=== PATIENT | male | born 1970 | race Caucasian/White ===

== ENCOUNTER 2018-06-06 16:04 | Inpatient (IN) | payer OTHER ==
[~2018-06-06] VITALS: Ht 170.2 cm; Wt 104.6 kg
[2018-06-06] MEDS ORDERED: MIRT30 PO (16:15)
[2018-06-06] MEDS ORDERED: OLAN2.5T3 PO (16:15)
[2018-06-06] MEDS ORDERED: SODIUM CHLORIDE 0.9% 1,000 ML IV ONE ×2 (16:45→18:15)
[2018-06-06] MEDS ORDERED: ONDANSETRON HCL 4 MG/2 ML VIAL IVP ONE (16:45)
[2018-06-06 16:55] LABS: BASOPHILS % (AUTO) 0.8 % (0.0-2.0); EOSINOPHILS % (AUTO) 0.3 % (1.0-6.0); HEMATOCRIT 32.2 % (41-53); HEMOGLOBIN 11.1 g/dL (13.5-17.5); LYMPHOCYTES # (AUTO) 0.9 K/uL (1.0-4.8); LYMPHOCYTES % (AUTO) 6.5 % (22.0-44.0); MEAN CORPUSCULAR HEMOGLOBIN 37.2 pg (26.0-34.0); MEAN CORPUSCULAR HGB CONC 34.6 G/dL (31.0-37.0); MEAN CORPUSCULAR VOLUME 108 fL (80-100); MONOCYTES # (AUTO) 1.2 K/uL (0.1-1.0); MONOCYTES % (AUTO) 8.7 % (2.0-9.0); NEUTROPHILS # (AUTO) 11.6 K/uL (1.8-7.7); NEUTROPHILS % (AUTO) 83.7 % (40.0-70.0); PLATELET COUNT (AUTO) 280 K/uL (150-450); RED BLOOD CELL COUNT(AUTO) 2.99 MIL/uL (4.50-5.90); RED CELL DISTRIBUTION WIDTH 15.1 % (11.5-14.5)
[2018-06-06 17:06] LABS: ANION GAP 13 mmol/L (8-16); CARBON DIOXIDE 23 mmol/L (22-29); CHLORIDE 99 mmol/L (98-107); CREATININE 0.85 mg/dL (0.60-1.30); GLOMERULAR FILTR. RATE CALC > 60 mL/min (>60); GLUCOSE,RANDOM 111 mg/dL (70-110); POTASSIUM 3.2 mmol/L (3.5-5.1); SODIUM SERUM 135 mmol/L (136-145); UREA NITROGEN, BLOOD 9 mg/dL (7-18)
[2018-06-06 17:07] LABS: INR 1.2 (0.9-1.1); PROTHROMBIN TIME 12.6 SEC (9.4-11.6)
[2018-06-06 17:11] LABS: ALANINE AMINOTRANSFERASE 87 U/L (12-78); ALBUMIN 2.2 g/dL (3.4-5.0); ALKALINE PHOSPHATASE 198 U/L (46-116); ASPARTATE AMINOTRANSFERASE 285 U/L (15-37); BILIRUBIN,TOTAL 7.8 mg/dL (0.1-1.0); LIPASE 346 U/L (73-393); TOTAL PROTEIN, SERUM 9.1 g/dL (6.4-8.2)
[2018-06-06] MEDS ORDERED: DIAZEPAM 5 MG/ML 2 ML SYRINGE IVP PRN (18:15)
[2018-06-06] MEDS ORDERED: ONDANSETRON HCL 4 MG/2 ML VIAL IVP PRN (18:15)
[2018-06-06] MEDS ORDERED: POTASSIUM CHLORIDE 10% 40 MEQ/30 ML LIQUID UDCUP PO ONE (21:00)
[2018-06-06 21:15] VITALS: BP 129/83
[2018-06-06] MEDS ORDERED: ACETAMINOPHEN 325 MG TABLET PO PRN (22:15)
[2018-06-06] MEDS ORDERED: MIRTAZAPINE 30 MG TABLET PO SCH (22:15)
[2018-06-06 23:01] LABS: LACTIC ACID 2.2 mmol/L (0.4-2.0)
[2018-06-06 23:08] VITALS: BP 153/83
[2018-06-06] MEDS: OLANZapine 7.5 MG TABLET PO SCH (23:10)
[2018-06-07 01:41] LABS: APPEARANCE,URINE CLOUDY (CLEAR); GLUCOSE, URINE (UA) NEGATIVE (NEGATIVE); KETONES,URINE 15 mg/dL (NEGATIVE); LEUKOCYTE ESTERASE ,URINE MODERATE (NEGATIVE); NITRATE,URINE POSITIVE (NEGATIVE); OCCULT BLOOD,URINE NEGATIVE (NEGATIVE); PH,URINE 5.5 (5.0-8.0); PROTEIN,URINE POS 1+ (NEGATIVE)
[2018-06-07 01:42] LABS: BILIRUBIN,URINE PRELIM. POSITIVE (NEGATIVE)
[2018-06-07 01:49] LABS: BACTERIA,URINE Moderate /HPF (None Seen)
[2018-06-07 01:50] LABS: MUCUS,URINE Moderate LPF (None Seen); RBC,URINE None Seen /HPF (0-2); SQUAMOUS EPITHELIAL CELL,UR Few /LPF (None Seen)
[2018-06-07 05:07] VITALS: BP 130/80
[2018-06-07 05:45] LABS: BASOPHILS % (AUTO) 0.8 % (0.0-2.0); EOSINOPHILS % (AUTO) 0.6 % (1.0-6.0); HEMATOCRIT 29.7 % (41-53); HEMOGLOBIN 10.1 g/dL (13.5-17.5); LYMPHOCYTES # (AUTO) 1.4 K/uL (1.0-4.8); LYMPHOCYTES % (AUTO) 10.7 % (22.0-44.0); MEAN CORPUSCULAR HEMOGLOBIN 37.3 pg (26.0-34.0); MEAN CORPUSCULAR HGB CONC 34.1 G/dL (31.0-37.0); MEAN CORPUSCULAR VOLUME 109 fL (80-100); MONOCYTES # (AUTO) 1.4 K/uL (0.1-1.0); MONOCYTES % (AUTO) 10.6 % (2.0-9.0); NEUTROPHILS # (AUTO) 10.1 K/uL (1.8-7.7); NEUTROPHILS % (AUTO) 77.3 % (40.0-70.0); PLATELET COUNT (AUTO) 241 K/uL (150-450); RED BLOOD CELL COUNT(AUTO) 2.72 MIL/uL (4.50-5.90); RED CELL DISTRIBUTION WIDTH 15.5 % (11.5-14.5)
[2018-06-07 06:33] LABS: ALANINE AMINOTRANSFERASE 81 U/L (12-78); ALKALINE PHOSPHATASE 185 U/L (46-116); ANION GAP 11 mmol/L (8-16); ASPARTATE AMINOTRANSFERASE 272 U/L (15-37); BILIRUBIN,TOTAL 7.2 mg/dL (0.1-1.0); CALCIUM, TOTAL 8.5 mg/dL (8.8-10.5); CARBON DIOXIDE 24 mmol/L (22-29); CHLORIDE 102 mmol/L (98-107); CREATININE 0.97 mg/dL (0.60-1.30); GLOMERULAR FILTR. RATE CALC > 60 mL/min (>60); GLUCOSE,RANDOM 92 mg/dL (70-110); POTASSIUM 3.8 mmol/L (3.5-5.1); SODIUM SERUM 137 mmol/L (136-145); TOTAL PROTEIN, SERUM 7.9 g/dL (6.4-8.2); UREA NITROGEN, BLOOD 10 mg/dL (7-18)
[2018-06-07 07:07] VITALS: BP 136/82
[2018-06-07 15:06] VITALS: BP 154/77
[2018-06-07] MEDS ORDERED: PIPERACILLIN SODIUM/TAZOBACTAM 2.25 GM in DEXTROSE 5%-WATER 50 ML IV SCH (16:00)
[2018-06-07] MEDS: PIPERACILLIN/TAZO 3.375 GM/D5W 50 ML IV SCH ×2 (16:31→21:05)
[2018-06-07] MEDS ORDERED: MORPHINE SULFATE 2 MG/ML SYRINGE IVP PRN (17:30)
[2018-06-07] MEDS ORDERED: BISACODYL 10 MG RECTAL RECTAL SUPPOSITORY PR PRN (17:30)
[2018-06-07] MEDS ORDERED: LORazepam 2 MG/ML VIAL IVP PRN (17:30)
[2018-06-07] MEDS ORDERED: HYDROCODONE/ACETAMINOPHEN 5-325 MG TABLET PO PRN (17:30)
[2018-06-07] MEDS ORDERED: ALBUTEROL SULFATE 2.5 MG/0.5 ML NEB SOLUTION NEB PRN (17:30)
[2018-06-07] MEDS ORDERED: ONDANSETRON HCL 4 MG/2 ML VIAL IVP PRN (17:30)
[2018-06-07] MEDS ORDERED: IPRATROPIUM BROMIDE 0.5 MG/2.5 ML NEB SOLUTION NEB PRN (17:30)
[2018-06-07] MEDS ORDERED: MAGNESIUM HYDROXIDE SUSPENSION 30 ML UDCUP PO PRN (17:30)
[2018-06-07] MEDS: ChlordiazePOXIDE HCL 25 MG CAPSULE PO SCH (17:53)
[2018-06-07] MEDS: MIRTAZAPINE 30 MG TABLET PO SCH (17:53)
[2018-06-07 19:29] VITALS: BP 140/88
[2018-06-07] MEDS: DOCUSATE SODIUM 100 MG CAPSULE PO SCH (21:00)
[2018-06-07] MEDS: OLANZapine 7.5 MG TABLET PO SCH (21:04)
[2018-06-07 23:20] VITALS: BP 132/79
[2018-06-08] MEDS: HEPARIN SODIUM,PORCINE 5,000 UNITS/ML VIAL SQ SCH ×3 (00:08→16:52)
[2018-06-08] MEDS: ChlordiazePOXIDE HCL 25 MG CAPSULE PO SCH ×3 (00:08→16:52)
[2018-06-08] MEDS: ZOLPIDEM TARTRATE 5 MG TABLET PO PRN (00:09)
[2018-06-08] MEDS: PIPERACILLIN/TAZO 3.375 GM/D5W 50 ML IV SCH ×4 (03:19→21:46)
[2018-06-08 04:28] VITALS: BP 131/85
[2018-06-08 07:51] VITALS: BP 127/77
[2018-06-08] MEDS: FOLIC ACID 1 MG TABLET PO SCH (08:27)
[2018-06-08] MEDS: MIRTAZAPINE 30 MG TABLET PO SCH (08:27)
[2018-06-08] MEDS: MULTIVITAMINS, THERAPEUTIC TABLET PO SCH (08:27)
[2018-06-08] MEDS: DOCUSATE SODIUM 100 MG CAPSULE PO SCH ×2 (08:28→21:00)
[2018-06-08] MEDS: PANTOPRAZOLE SODIUM 40 MG/VIAL IVP SCH (08:28)
[2018-06-08] MEDS: THIAMINE HCL 100 MG TABLET PO SCH (08:28)
[2018-06-08] MEDS ORDERED: MEBROFENIN TC99M/MCL ISOTOPE 1 EA INJ INJ ONE (09:15)
[2018-06-08 11:37] VITALS: BP 112/62
[2018-06-08 14:09] LABS: EOSINOPHILS % (AUTO) 0.9 % (1.0-6.0); HEMATOCRIT 30.2 % (41-53); HEMOGLOBIN 10.3 g/dL (13.5-17.5); LYMPHOCYTES # (AUTO) 1.4 K/uL (1.0-4.8); LYMPHOCYTES % (AUTO) 11.4 % (22.0-44.0); MEAN CORPUSCULAR HGB CONC 34.3 G/dL (31.0-37.0); MEAN CORPUSCULAR VOLUME 108 fL (80-100); MONOCYTES # (AUTO) 0.9 K/uL (0.1-1.0); MONOCYTES % (AUTO) 7.4 % (2.0-9.0); NEUTROPHILS # (AUTO) 9.8 K/uL (1.8-7.7); NEUTROPHILS % (AUTO) 79.3 % (40.0-70.0); PLATELET COUNT (AUTO) 247 K/uL (150-450); RED BLOOD CELL COUNT(AUTO) 2.79 MIL/uL (4.50-5.90); RED CELL DISTRIBUTION WIDTH 15.7 % (11.5-14.5)
[2018-06-08 14:28] LABS: ANION GAP 11 mmol/L (8-16); CARBON DIOXIDE 24 mmol/L (22-29); CHLORIDE 98 mmol/L (98-107); CREATININE 0.97 mg/dL (0.60-1.30); GLOMERULAR FILTR. RATE CALC > 60 mL/min (>60); GLUCOSE,RANDOM 92 mg/dL (70-110); POTASSIUM 3.8 mmol/L (3.5-5.1); SODIUM SERUM 133 mmol/L (136-145); UREA NITROGEN, BLOOD 7 mg/dL (7-18)
[2018-06-08 14:34] LABS: ALANINE AMINOTRANSFERASE 75 U/L (12-78); ALBUMIN 2.1 g/dL (3.4-5.0); ALKALINE PHOSPHATASE 178 U/L (46-116); ASPARTATE AMINOTRANSFERASE 244 U/L (15-37); BILIRUBIN,TOTAL 7.8 mg/dL (0.1-1.0); TOTAL PROTEIN, SERUM 8.4 g/dL (6.4-8.2)
[2018-06-08 16:09] VITALS: BP 118/73
[2018-06-08 20:18] VITALS: BP 117/75
[2018-06-08] MEDS: OLANZapine 7.5 MG TABLET PO SCH (21:46)
[2018-06-09 00:06] VITALS: BP 139/80
[2018-06-09] MEDS: ChlordiazePOXIDE HCL 25 MG CAPSULE PO SCH ×3 (00:14→16:36)
[2018-06-09] MEDS: HEPARIN SODIUM,PORCINE 5,000 UNITS/ML VIAL SQ SCH ×3 (00:14→16:37)
[2018-06-09] MEDS: PIPERACILLIN/TAZO 3.375 GM/D5W 50 ML IV SCH ×4 (03:15→21:12)
[2018-06-09 04:21] VITALS: BP 128/77
[2018-06-09 05:56] LABS: BASOPHILS % (AUTO) 0.9 % (0.0-2.0); EOSINOPHILS % (AUTO) 0.7 % (1.0-6.0); HEMATOCRIT 28.5 % (41-53); HEMOGLOBIN 9.8 g/dL (13.5-17.5); LYMPHOCYTES # (AUTO) 1.8 K/uL (1.0-4.8); LYMPHOCYTES % (AUTO) 14.7 % (22.0-44.0); MEAN CORPUSCULAR HEMOGLOBIN 37.6 pg (26.0-34.0); MEAN CORPUSCULAR HGB CONC 34.2 G/dL (31.0-37.0); MEAN CORPUSCULAR VOLUME 110 fL (80-100); MONOCYTES # (AUTO) 1.2 K/uL (0.1-1.0); MONOCYTES % (AUTO) 9.8 % (2.0-9.0); NEUTROPHILS % (AUTO) 73.9 % (40.0-70.0); PLATELET COUNT (AUTO) 244 K/uL (150-450); RED CELL DISTRIBUTION WIDTH 15.8 % (11.5-14.5)
[2018-06-09 06:21] LABS: ALANINE AMINOTRANSFERASE 67 U/L (12-78); ALBUMIN 1.8 g/dL (3.4-5.0); ALKALINE PHOSPHATASE 159 U/L (46-116); ANION GAP 10 mmol/L (8-16); ASPARTATE AMINOTRANSFERASE 211 U/L (15-37); BILIRUBIN,TOTAL 6.5 mg/dL (0.1-1.0); CARBON DIOXIDE 25 mmol/L (22-29); CHLORIDE 99 mmol/L (98-107); CREATININE 1.02 mg/dL (0.60-1.30); GLOMERULAR FILTR. RATE CALC > 60 mL/min (>60); GLUCOSE,RANDOM 86 mg/dL (70-110); LIPASE 492 U/L (73-393); POTASSIUM 3.6 mmol/L (3.5-5.1); SODIUM SERUM 134 mmol/L (136-145); TOTAL PROTEIN, SERUM 7.8 g/dL (6.4-8.2); UREA NITROGEN, BLOOD 8 mg/dL (7-18)
[2018-06-09] MEDS ORDERED: RINGERS SOLUTION,LACTATED 1,000 ML IV SCH (08:00)
[2018-06-09 08:31] VITALS: BP 146/90
[2018-06-09] MEDS: DOCUSATE SODIUM 100 MG CAPSULE PO SCH ×2 (09:00→21:00)
[2018-06-09] MEDS: PANTOPRAZOLE SODIUM 40 MG/VIAL IVP SCH (09:53)
[2018-06-09] MEDS: FOLIC ACID 1 MG TABLET PO SCH (09:53)
[2018-06-09] MEDS: THIAMINE HCL 100 MG TABLET PO SCH (09:53)
[2018-06-09] MEDS: MULTIVITAMINS, THERAPEUTIC TABLET PO SCH (09:53)
[2018-06-09] MEDS: MIRTAZAPINE 30 MG TABLET PO SCH (09:53)
[2018-06-09 12:19] VITALS: BP 112/68
[2018-06-09 15:57] VITALS: BP 128/72
[2018-06-09 19:10] VITALS: BP 125/60
[2018-06-09] MEDS: OLANZapine 7.5 MG TABLET PO SCH (21:11)
[2018-06-10 00:15] VITALS: BP 125/80
[2018-06-10] MEDS: ChlordiazePOXIDE HCL 25 MG CAPSULE PO SCH ×2 (00:20→08:02)
[2018-06-10] MEDS: HEPARIN SODIUM,PORCINE 5,000 UNITS/ML VIAL SQ SCH ×3 (00:22→16:51)
[2018-06-10] MEDS ORDERED: SODIUM CHLORIDE 0.9% 250 ML IV ONE (01:54)
[2018-06-10] MEDS: PIPERACILLIN/TAZO 3.375 GM/D5W 50 ML IV SCH ×3 (04:29→16:51)
[2018-06-10 04:30] VITALS: BP 120/74
[2018-06-10 06:27] LABS: BASOPHILS % (AUTO) 0.8 % (0.0-2.0); HEMATOCRIT 28.2 % (41-53); HEMOGLOBIN 9.7 g/dL (13.5-17.5); LYMPHOCYTES # (AUTO) 1.2 K/uL (1.0-4.8); LYMPHOCYTES % (AUTO) 9.9 % (22.0-44.0); MEAN CORPUSCULAR HGB CONC 34.4 G/dL (31.0-37.0); MEAN CORPUSCULAR VOLUME 110 fL (80-100); MONOCYTES # (AUTO) 1.1 K/uL (0.1-1.0); MONOCYTES % (AUTO) 9.6 % (2.0-9.0); NEUTROPHILS # (AUTO) 9.4 K/uL (1.8-7.7); NEUTROPHILS % (AUTO) 78.7 % (40.0-70.0); PLATELET COUNT (AUTO) 251 K/uL (150-450); RED BLOOD CELL COUNT(AUTO) 2.55 MIL/uL (4.50-5.90)
[2018-06-10 06:58] LABS: ALANINE AMINOTRANSFERASE 61 U/L (12-78); ALBUMIN 1.7 g/dL (3.4-5.0); ALKALINE PHOSPHATASE 153 U/L (46-116); ANION GAP 10 mmol/L (8-16); ASPARTATE AMINOTRANSFERASE 197 U/L (15-37); BILIRUBIN,TOTAL 6.7 mg/dL (0.1-1.0); CALCIUM, TOTAL 8.6 mg/dL (8.8-10.5); CARBON DIOXIDE 24 mmol/L (22-29); CHLORIDE 101 mmol/L (98-107); CREATININE 0.95 mg/dL (0.60-1.30); GLOMERULAR FILTR. RATE CALC > 60 mL/min (>60); GLUCOSE,RANDOM 86 mg/dL (70-110); LIPASE 382 U/L (73-393); POTASSIUM 3.5 mmol/L (3.5-5.1); SODIUM SERUM 135 mmol/L (136-145); TOTAL PROTEIN, SERUM 7.9 g/dL (6.4-8.2); UREA NITROGEN, BLOOD 10 mg/dL (7-18)
[2018-06-10 07:59] VITALS: BP 101/62
[2018-06-10] MEDS: THIAMINE HCL 100 MG TABLET PO SCH (08:01)
[2018-06-10] MEDS: PANTOPRAZOLE SODIUM 40 MG/VIAL IVP SCH (08:01)
[2018-06-10] MEDS: FOLIC ACID 1 MG TABLET PO SCH (08:01)
[2018-06-10] MEDS: MULTIVITAMINS, THERAPEUTIC TABLET PO SCH (08:01)
[2018-06-10] MEDS: DOCUSATE SODIUM 100 MG CAPSULE PO SCH ×2 (08:02→20:25)
[2018-06-10] MEDS: MIRTAZAPINE 30 MG TABLET PO SCH (08:02)
[2018-06-10 11:19] VITALS: BP 135/82
[2018-06-10 15:13] VITALS: BP 135/81
[2018-06-10] MEDS ORDERED: SODIUM CHLORIDE 0.9% 100 ML ONE (16:49)
[2018-06-10] MEDS: ChlordiazePOXIDE HCL 10 MG CAPSULE PO SCH ×2 (16:51→20:24)
[2018-06-10 19:45] VITALS: BP 122/74
[2018-06-10] MEDS: OLANZapine 7.5 MG TABLET PO SCH (20:24)
[2018-06-11] MEDS: PIPERACILLIN/TAZO 3.375 GM/D5W 50 ML IV SCH ×5 (00:24→23:16)
[2018-06-11 00:41] VITALS: BP 122/74
[2018-06-11 04:12] VITALS: BP 124/72
[2018-06-11 05:58] LABS: BASOPHILS % (AUTO) 0.6 % (0.0-2.0); HEMATOCRIT 29.1 % (41-53); HEMOGLOBIN 9.8 g/dL (13.5-17.5); LYMPHOCYTES # (AUTO) 1.2 K/uL (1.0-4.8); LYMPHOCYTES % (AUTO) 10.1 % (22.0-44.0); MEAN CORPUSCULAR HEMOGLOBIN 37.1 pg (26.0-34.0); MEAN CORPUSCULAR HGB CONC 33.6 G/dL (31.0-37.0); MEAN CORPUSCULAR VOLUME 110 fL (80-100); MONOCYTES # (AUTO) 1.2 K/uL (0.1-1.0); MONOCYTES % (AUTO) 9.5 % (2.0-9.0); NEUTROPHILS # (AUTO) 9.6 K/uL (1.8-7.7); NEUTROPHILS % (AUTO) 78.8 % (40.0-70.0); PLATELET COUNT (AUTO) 247 K/uL (150-450); RED BLOOD CELL COUNT(AUTO) 2.64 MIL/uL (4.50-5.90)
[2018-06-11 06:31] LABS: ALANINE AMINOTRANSFERASE 60 U/L (12-78); ALBUMIN 1.7 g/dL (3.4-5.0); ALKALINE PHOSPHATASE 148 U/L (46-116); ANION GAP 9 mmol/L (8-16); ASPARTATE AMINOTRANSFERASE 195 U/L (15-37); BILIRUBIN,TOTAL 6.6 mg/dL (0.1-1.0); CALCIUM, TOTAL 8.5 mg/dL (8.8-10.5); CARBON DIOXIDE 25 mmol/L (22-29); CHLORIDE 101 mmol/L (98-107); CHOL/HDL RATIO 19.3 (4.2-7.3); CHOLESTEROL 154 mg/dL (131-200); CREATININE 1.11 mg/dL (0.60-1.30); GLOMERULAR FILTR. RATE CALC > 60 mL/min (>60); GLUCOSE,RANDOM 90 mg/dL (70-110); HDL CHOLESTEROL 8 mg/dL (40-60); LDL CHOL (CALC.) 104 mg/dL (0-130); LIPASE 349 U/L (73-393); POTASSIUM 3.5 mmol/L (3.5-5.1); SODIUM SERUM 135 mmol/L (136-145); TOTAL PROTEIN, SERUM 7.9 g/dL (6.4-8.2); TRIGLYCERIDES 211 mg/dL (15-150); UREA NITROGEN, BLOOD 10 mg/dL (7-18)
[2018-06-11 07:58] VITALS: BP 133/83
[2018-06-11] MEDS: HEPARIN SODIUM,PORCINE 5,000 UNITS/ML VIAL SQ SCH ×4 (08:33→23:16)
[2018-06-11] MEDS: PANTOPRAZOLE SODIUM 40 MG/VIAL IVP SCH (08:33)
[2018-06-11] MEDS: MIRTAZAPINE 30 MG TABLET PO SCH (08:34)
[2018-06-11] MEDS: ChlordiazePOXIDE HCL 10 MG CAPSULE PO SCH ×4 (08:34→20:39)
[2018-06-11] MEDS: DOCUSATE SODIUM 100 MG CAPSULE PO SCH ×2 (08:34→20:39)
[2018-06-11] MEDS: MULTIVITAMINS, THERAPEUTIC TABLET PO SCH (08:34)
[2018-06-11] MEDS: FOLIC ACID 1 MG TABLET PO SCH (08:34)
[2018-06-11] MEDS: THIAMINE HCL 100 MG TABLET PO SCH (08:35)
[2018-06-11] MEDS: ACETAMINOPHEN 325 MG TABLET PO PRN (10:52)
[2018-06-11 11:25] VITALS: BP 129/73
[2018-06-11 15:29] VITALS: BP 114/60
[2018-06-11 19:58] VITALS: BP 111/76
[2018-06-11] MEDS: OLANZapine 7.5 MG TABLET PO SCH (20:39)
[2018-06-12 00:21] VITALS: BP 105/57
[2018-06-12 04:19] VITALS: BP 126/68
[2018-06-12] MEDS: ACETAMINOPHEN 325 MG TABLET PO PRN (04:39)
[2018-06-12] MEDS: PIPERACILLIN/TAZO 3.375 GM/D5W 50 ML IV SCH ×4 (04:39→23:23)
[2018-06-12 07:06] LABS: ALANINE AMINOTRANSFERASE 60 U/L (12-78); ALBUMIN 1.7 g/dL (3.4-5.0); ALKALINE PHOSPHATASE 143 U/L (46-116); ANION GAP 9 mmol/L (8-16); ASPARTATE AMINOTRANSFERASE 196 U/L (15-37); BILIRUBIN,TOTAL 6.8 mg/dL (0.1-1.0); CALCIUM, TOTAL 8.7 mg/dL (8.8-10.5); CARBON DIOXIDE 27 mmol/L (22-29); CHLORIDE 103 mmol/L (98-107); CREATININE 1.06 mg/dL (0.60-1.30); GLOMERULAR FILTR. RATE CALC > 60 mL/min (>60); GLUCOSE,RANDOM 86 mg/dL (70-110); LIPASE 318 U/L (73-393); POTASSIUM 3.9 mmol/L (3.5-5.1); SODIUM SERUM 139 mmol/L (136-145)
[2018-06-12 07:16] LABS: EOSINOPHILS % (AUTO) 0.9 % (1.0-6.0); HEMATOCRIT 28.3 % (41-53); HEMOGLOBIN 9.7 g/dL (13.5-17.5); LYMPHOCYTES # (AUTO) 1.4 K/uL (1.0-4.8); LYMPHOCYTES % (AUTO) 11.7 % (22.0-44.0); MEAN CORPUSCULAR HEMOGLOBIN 37.5 pg (26.0-34.0); MEAN CORPUSCULAR HGB CONC 34.2 G/dL (31.0-37.0); MEAN CORPUSCULAR VOLUME 110 fL (80-100); MONOCYTES # (AUTO) 1.2 K/uL (0.1-1.0); MONOCYTES % (AUTO) 9.7 % (2.0-9.0); NEUTROPHILS # (AUTO) 9.4 K/uL (1.8-7.7); NEUTROPHILS % (AUTO) 76.7 % (40.0-70.0); PLATELET COUNT (AUTO) 265 K/uL (150-450); RED BLOOD CELL COUNT(AUTO) 2.58 MIL/uL (4.50-5.90); RED CELL DISTRIBUTION WIDTH 15.8 % (11.5-14.5)
[2018-06-12 07:34] LABS: UREA NITROGEN, BLOOD 10 mg/dL (7-18)
[2018-06-12 07:50] VITALS: BP 125/77
[2018-06-12] MEDS: PANTOPRAZOLE SODIUM 40 MG/VIAL IVP SCH (07:54)
[2018-06-12] MEDS: DOCUSATE SODIUM 100 MG CAPSULE PO SCH ×2 (07:55→20:06)
[2018-06-12] MEDS: MIRTAZAPINE 30 MG TABLET PO SCH (07:55)
[2018-06-12] MEDS: THIAMINE HCL 100 MG TABLET PO SCH (07:55)
[2018-06-12] MEDS: HEPARIN SODIUM,PORCINE 5,000 UNITS/ML VIAL SQ SCH ×3 (07:55→23:23)
[2018-06-12] MEDS: FOLIC ACID 1 MG TABLET PO SCH (07:55)
[2018-06-12] MEDS: MULTIVITAMINS, THERAPEUTIC TABLET PO SCH (07:56)
[2018-06-12] MEDS: ChlordiazePOXIDE HCL 10 MG CAPSULE PO SCH ×4 (07:56→20:06)
[2018-06-12 12:10] VITALS: BP 125/79
[2018-06-12 15:41] VITALS: BP 138/71
[2018-06-12] MEDS: OLANZapine 7.5 MG TABLET PO SCH (20:06)
[2018-06-12 20:27] VITALS: BP 103/54
[2018-06-12] MEDS: ZOLPIDEM TARTRATE 5 MG TABLET PO PRN (23:27)
[2018-06-13] VITALS (7 sets, daily range): BP systolic 95–136; BP diastolic 54–93
[2018-06-13] MEDS: PIPERACILLIN/TAZO 3.375 GM/D5W 50 ML IV SCH ×4 (05:22→21:53)
[2018-06-13 06:53] LABS: ALANINE AMINOTRANSFERASE 59 U/L (12-78); ALBUMIN 1.7 g/dL (3.4-5.0); ALKALINE PHOSPHATASE 137 U/L (46-116); ANION GAP 10 mmol/L (8-16); ASPARTATE AMINOTRANSFERASE 193 U/L (15-37); BILIRUBIN,TOTAL 6.3 mg/dL (0.1-1.0); CALCIUM, TOTAL 8.6 mg/dL (8.8-10.5); CARBON DIOXIDE 26 mmol/L (22-29); CHLORIDE 101 mmol/L (98-107); GLOMERULAR FILTR. RATE CALC > 60 mL/min (>60); GLUCOSE,RANDOM 90 mg/dL (70-110); LIPASE 280 U/L (73-393); POTASSIUM 3.5 mmol/L (3.5-5.1); SODIUM SERUM 137 mmol/L (136-145); TOTAL PROTEIN, SERUM 7.9 g/dL (6.4-8.2); UREA NITROGEN, BLOOD 9 mg/dL (7-18)
[2018-06-13 07:01] LABS: BASOPHILS % (AUTO) 1.1 % (0.0-2.0); EOSINOPHILS % (AUTO) 1.1 % (1.0-6.0); HEMATOCRIT 27.9 % (41-53); HEMOGLOBIN 9.6 g/dL (13.5-17.5); LYMPHOCYTES # (AUTO) 1.4 K/uL (1.0-4.8); LYMPHOCYTES % (AUTO) 11.2 % (22.0-44.0); MEAN CORPUSCULAR HEMOGLOBIN 37.5 pg (26.0-34.0); MEAN CORPUSCULAR HGB CONC 34.5 G/dL (31.0-37.0); MEAN CORPUSCULAR VOLUME 109 fL (80-100); MONOCYTES # (AUTO) 1.3 K/uL (0.1-1.0); MONOCYTES % (AUTO) 10.5 % (2.0-9.0); NEUTROPHILS # (AUTO) 9.4 K/uL (1.8-7.7); NEUTROPHILS % (AUTO) 76.1 % (40.0-70.0); PLATELET COUNT (AUTO) 248 K/uL (150-450); RED BLOOD CELL COUNT(AUTO) 2.57 MIL/uL (4.50-5.90); RED CELL DISTRIBUTION WIDTH 16.1 % (11.5-14.5)
[2018-06-13] MEDS: PANTOPRAZOLE SODIUM 40 MG/VIAL IVP SCH (08:16)
[2018-06-13] MEDS: HEPARIN SODIUM,PORCINE 5,000 UNITS/ML VIAL SQ SCH ×3 (08:16→23:17)
[2018-06-13] MEDS: FOLIC ACID 1 MG TABLET PO SCH (08:17)
[2018-06-13] MEDS: MIRTAZAPINE 30 MG TABLET PO SCH (08:17)
[2018-06-13] MEDS: MULTIVITAMINS, THERAPEUTIC TABLET PO SCH (08:17)
[2018-06-13] MEDS: THIAMINE HCL 100 MG TABLET PO SCH (08:17)
[2018-06-13] MEDS: ChlordiazePOXIDE HCL 10 MG CAPSULE PO SCH ×3 (08:17→21:52)
[2018-06-13] MEDS: ACETAMINOPHEN 325 MG TABLET PO PRN ×2 (08:17→23:17)
[2018-06-13] MEDS: DOCUSATE SODIUM 100 MG CAPSULE PO SCH ×2 (08:18→21:00)
[2018-06-13] MEDS ORDERED: IBUPROFEN 400 MG TABLET PO PRN (11:45)
[2018-06-13 11:46] LABS: INR 1.3 (0.9-1.1); PROTHROMBIN TIME 13.2 SEC (9.4-11.6)
[2018-06-13] MEDS ORDERED: SODIUM CHLORIDE 0.9% 500 ML IV ONE (21:49)
[2018-06-13] MEDS: OLANZapine 7.5 MG TABLET PO SCH (21:52)
[2018-06-14] MEDS: PIPERACILLIN/TAZO 3.375 GM/D5W 50 ML IV SCH ×4 (03:48→22:37)
[2018-06-14 04:55] VITALS: BP 101/58
[2018-06-14 07:05] LABS: BASOPHILS % (AUTO) 1.4 % (0.0-2.0); EOSINOPHILS % (AUTO) 1.2 % (1.0-6.0); HEMATOCRIT 27.1 % (41-53); HEMOGLOBIN 9.3 g/dL (13.5-17.5); LYMPHOCYTES # (AUTO) 1.6 K/uL (1.0-4.8); LYMPHOCYTES % (AUTO) 13.6 % (22.0-44.0); MEAN CORPUSCULAR HEMOGLOBIN 37.8 pg (26.0-34.0); MEAN CORPUSCULAR HGB CONC 34.5 G/dL (31.0-37.0); MEAN CORPUSCULAR VOLUME 110 fL (80-100); MONOCYTES # (AUTO) 1.2 K/uL (0.1-1.0); MONOCYTES % (AUTO) 9.9 % (2.0-9.0); NEUTROPHILS # (AUTO) 8.8 K/uL (1.8-7.7); NEUTROPHILS % (AUTO) 73.9 % (40.0-70.0); PLATELET COUNT (AUTO) 266 K/uL (150-450); RED BLOOD CELL COUNT(AUTO) 2.47 MIL/uL (4.50-5.90)
[2018-06-14 07:20] LABS: ALANINE AMINOTRANSFERASE 55 U/L (12-78); ALBUMIN 1.6 g/dL (3.4-5.0); ALKALINE PHOSPHATASE 128 U/L (46-116); ANION GAP 9 mmol/L (8-16); ASPARTATE AMINOTRANSFERASE 190 U/L (15-37); BILIRUBIN,TOTAL 6.3 mg/dL (0.1-1.0); CALCIUM, TOTAL 8.8 mg/dL (8.8-10.5); CARBON DIOXIDE 26 mmol/L (22-29); CHLORIDE 103 mmol/L (98-107); CREATININE 1.01 mg/dL (0.60-1.30); GLOMERULAR FILTR. RATE CALC > 60 mL/min (>60); GLUCOSE,RANDOM 89 mg/dL (70-110); LIPASE 276 U/L (73-393); POTASSIUM 3.4 mmol/L (3.5-5.1); SODIUM SERUM 138 mmol/L (136-145); TOTAL PROTEIN, SERUM 7.9 g/dL (6.4-8.2); UREA NITROGEN, BLOOD 11 mg/dL (7-18)
[2018-06-14 07:55] VITALS: BP 110/47
[2018-06-14] MEDS: DOCUSATE SODIUM 100 MG CAPSULE PO SCH ×2 (08:14→21:00)
[2018-06-14] MEDS: HEPARIN SODIUM,PORCINE 5,000 UNITS/ML VIAL SQ SCH ×3 (08:15→23:32)
[2018-06-14] MEDS: PANTOPRAZOLE SODIUM 40 MG/VIAL IVP SCH (08:15)
[2018-06-14] MEDS: FOLIC ACID 1 MG TABLET PO SCH (10:39)
[2018-06-14] MEDS: MIRTAZAPINE 30 MG TABLET PO SCH (10:39)
[2018-06-14] MEDS: ChlordiazePOXIDE HCL 10 MG CAPSULE PO SCH ×3 (10:39→20:22)
[2018-06-14] MEDS: MULTIVITAMINS, THERAPEUTIC TABLET PO SCH (10:39)
[2018-06-14] MEDS: THIAMINE HCL 100 MG TABLET PO SCH (10:39)
[2018-06-14 11:23] VITALS: BP 145/77
[2018-06-14] MEDS ORDERED: *CLINICAL-LEVOFLOXACIN IVPB DOSING CLINICAL ONE (12:00)
[2018-06-14 12:24] LABS: SPECIMENTYPE,BODY FLUID PARACENTESIS
[2018-06-14 13:18] VITALS: BP 114/64
[2018-06-14] MEDS: LEVOFLOXACIN 750 MG/D5% WATER 150 ML IV SCH (14:04)
[2018-06-14 14:08] LABS: APPEARANCE,SPUN,BODY FLUID CLEAR (CLEAR); APPEARANCE,UNSPUN,BODY FLUID HAZY (CLEAR); COLOR,BODY FLUID DARK YELLOW (LT YELLOW); TOTAL VOLUME,BODY FLUID 4700 mL
[2018-06-14 14:09] LABS: LYMPHOCYTES,BODY FLUID 51 %; NEUTROPHILS,BODY FLUID 3 %; WBC, BODY FLUID 340 /cu. mm.
[2018-06-14 14:10] LABS: BASOPHILS,BODY FLUID 0 %; EOSINOPHILS,BF (ANAL) 0 %; MONOCYTES,BODY FLUID 43 %
[2018-06-14 14:11] LABS: OTHER CELLS,BODY FLUID 3
[2018-06-14 16:11] VITALS: BP 102/62
[2018-06-14 20:00] VITALS: BP 117/64
[2018-06-14] MEDS: OLANZapine 7.5 MG TABLET PO SCH (20:33)
[2018-06-15 00:46] VITALS: BP 115/67
[2018-06-15 04:00] VITALS: BP 110/69
[2018-06-15] MEDS: PIPERACILLIN/TAZO 3.375 GM/D5W 50 ML IV SCH ×3 (04:00→15:55)
[2018-06-15 06:51] LABS: EOSINOPHILS % (AUTO) 0.9 % (1.0-6.0); HEMATOCRIT 27.5 % (41-53); HEMOGLOBIN 9.5 g/dL (13.5-17.5); LYMPHOCYTES # (AUTO) 1.8 K/uL (1.0-4.8); LYMPHOCYTES % (AUTO) 14.4 % (22.0-44.0); MEAN CORPUSCULAR HEMOGLOBIN 38.3 pg (26.0-34.0); MEAN CORPUSCULAR HGB CONC 34.6 G/dL (31.0-37.0); MEAN CORPUSCULAR VOLUME 111 fL (80-100); MONOCYTES # (AUTO) 1.3 K/uL (0.1-1.0); MONOCYTES % (AUTO) 9.9 % (2.0-9.0); NEUTROPHILS # (AUTO) 9.4 K/uL (1.8-7.7); NEUTROPHILS % (AUTO) 73.8 % (40.0-70.0); PLATELET COUNT (AUTO) 248 K/uL (150-450); RED BLOOD CELL COUNT(AUTO) 2.48 MIL/uL (4.50-5.90)
[2018-06-15 07:06] LABS: ALANINE AMINOTRANSFERASE 48 U/L (12-78); ALBUMIN 1.5 g/dL (3.4-5.0); ALKALINE PHOSPHATASE 122 U/L (46-116); ANION GAP 9 mmol/L (8-16); ASPARTATE AMINOTRANSFERASE 175 U/L (15-37); BILIRUBIN,TOTAL 5.8 mg/dL (0.1-1.0); CALCIUM, TOTAL 8.5 mg/dL (8.8-10.5); CARBON DIOXIDE 26 mmol/L (22-29); CHLORIDE 102 mmol/L (98-107); CREATININE 1.17 mg/dL (0.60-1.30); GLOMERULAR FILTR. RATE CALC > 60 mL/min (>60); GLUCOSE,RANDOM 89 mg/dL (70-110); LIPASE 255 U/L (73-393); POTASSIUM 3.4 mmol/L (3.5-5.1); SODIUM SERUM 137 mmol/L (136-145); TOTAL PROTEIN, SERUM 7.6 g/dL (6.4-8.2); UREA NITROGEN, BLOOD 12 mg/dL (7-18)
[2018-06-15] MEDS: MULTIVITAMINS, THERAPEUTIC TABLET PO SCH (08:26)
[2018-06-15] MEDS: DOCUSATE SODIUM 100 MG CAPSULE PO SCH (08:26)
[2018-06-15] MEDS: MIRTAZAPINE 30 MG TABLET PO SCH (08:26)
[2018-06-15] MEDS: FOLIC ACID 1 MG TABLET PO SCH (08:26)
[2018-06-15] MEDS: ChlordiazePOXIDE HCL 10 MG CAPSULE PO SCH ×2 (08:26→15:55)
[2018-06-15] MEDS: THIAMINE HCL 100 MG TABLET PO SCH (08:26)
[2018-06-15] MEDS: PANTOPRAZOLE SODIUM 40 MG/VIAL IVP SCH (08:27)
[2018-06-15] MEDS: HEPARIN SODIUM,PORCINE 5,000 UNITS/ML VIAL SQ SCH ×2 (08:27→15:55)
[2018-06-15] MEDS: LEVOFLOXACIN 750 MG/D5% WATER 150 ML IV SCH (11:04)
[2018-06-15 11:24] VITALS: BP 122/70
[2018-06-15] MEDS ORDERED: THIA100T67 PO (11:46)
[2018-06-15] MEDS ORDERED: FOLI1 PO (11:46)
[2018-06-15] MEDS ORDERED: LIB10 PO (11:47)
[2018-06-15] MEDS ORDERED: CIPR-278 PO (11:47)
[2018-06-15] MEDS ORDERED: METR500 PO (11:47)
[2018-06-15] MEDS ORDERED: LIB5 PO ×2 (11:48)
== END 2018-06-15 16:24 | disposition home or self-care (01) | DRG 720 ==
LOC: EMS 16:05 → 5S 20:00 → 5N 06-14 12:35
PROVIDERS: ADMIT Hospitalist; ATTEND Hospitalist
PROC: 0W9G3ZZ Drainage of Peritoneal Cavity, Percutaneous Approach (ICD-10-PCS; principal; 2018-06-14)
DX: A41.9 Sepsis, unspecified organism (principal); E43 Unspecified severe protein-calorie malnutrition; K80.00 Calculus of gallbladder with acute cholecystitis without obstruction; F20.9 Schizophrenia, unspecified; E66.01 Morbid (severe) obesity due to excess calories; K56.7 Ileus, unspecified; K70.31 Alcoholic cirrhosis of liver with ascites; Y90.9 Presence of alcohol in blood, level not specified; F10.239 Alcohol dependence with withdrawal, unspecified; I10 Essential (primary) hypertension; B17.9 Acute viral hepatitis, unspecified; E87.6 Hypokalemia; F32.9 Major depressive disorder, single episode, unspecified; F17.210 Nicotine dependence, cigarettes, uncomplicated; Z68.36 Body mass index [BMI] 36.0-36.9, adult
CPT/HCPCS: 49083; 76705; 76942; 78226; 80074; 82042; 83605; 83615; 83735; 84145; 84157; 87040; 87070; 87086; 87205; 89051; 96374; 97161; 97165; 97535; A9537; C9113; G0238; G0378; J1644; J1956; J2405; J2543; J7030; J7040; J7050; J7060; J7120

== ENCOUNTER 2019-01-19 07:59 | Emergency (ER) | payer OTHER ==
[~2019-01-19] VITALS: Ht 170.2 cm; Wt 93.2 kg
[~2019-01-19 07:59] MED LIST: CIPR-278 PO; FOLI1 PO; LIB10 PO; LIB5 PO; METR500 PO; MIRT30 PO; OLAN2.5T3 PO; THIA100T67 PO
[2019-01-19] MEDS ORDERED: PROP10TA73 PO (08:16)
[2019-01-19] MEDS ORDERED: IBUPROFEN 400 MG TABLET PO ONE (13:30)
[2019-01-19 15:14] VITALS: BP 132/76
== END 2019-01-19 15:17 | disposition home or self-care (01) ==
LOC: EMS 07:59
DX: S82.832A Other fracture of upper and lower end of left fibula, initial encounter for closed fracture (principal); S93.492A Sprain of other ligament of left ankle, initial encounter; I10 Essential (primary) hypertension; K74.60 Unspecified cirrhosis of liver; F32.9 Major depressive disorder, single episode, unspecified; F17.210 Nicotine dependence, cigarettes, uncomplicated; F10.20 Alcohol dependence, uncomplicated; F11.90 Opioid use, unspecified, uncomplicated; Z98.890 Other specified postprocedural states; Z79.899 Other long term (current) drug therapy; X50.1XXA Overexertion from prolonged static or awkward postures, initial encounter; Y93.01 Activity, walking, marching and hiking; Y92.89 Other specified places as the place of occurrence of the external cause; Y99.8 Other external cause status
CPT/HCPCS: 29515